=== PATIENT | female | born 1940 | race Caucasian/White ===

== ENCOUNTER 2017-12-16 16:37 | Inpatient (IN) ==
[2017-12-16 17:47] LABS: Hematocrit 42.6 VOL% (35.7-47.0); Hemoglobin 14.5 GM/DL (12.0-16.0); Lymphocytes # 1.1 10*3/uL (1.4-4.0); Lymphocytes % 66.7 % (21.3-54.2); Mean Corpuscular Hemoglobin 30 PG (27-34); Mean Corpuscular Volume 88.6 FL (87-102); Mean Platelet Volume 11.6 FL (9.6-12.0); Monocytes # 0.2 10*3/uL (0.11-0.8); Monocytes % 11.5 % (1.7-12.7); Neutrophils # 0.4 10*3/uL (1.4-7.4); Neutrophils % 21.8 % (38.7-73.9); Red Blood Count 4.81 MC/CUMM (3.8-5.5); Red Cell Distribution Width 13.2 % (9.3-17.3); White Blood Count 1.7 T/CUMM (4-12)
[2017-12-16 17:49] LABS: Platelet Count 75 T/CUMM (130-400)
[2017-12-16 17:57] LABS: PT Patient Result 10.1 SECS
[2017-12-16 18:00] LABS: Albumin 3.6 G/DL (3.4-5.0); Bilirubin,Total 0.4 MG/DL (0.2-1.0); Calcium 8.2 MG/DL (8.5-10.1); Osmolality,Calculated 272.1 MOS/KG (273-304); Potassium 3.5 MMOL/L (3.5-5.1); Troponin I Only 0.178 NG/ML (0.00-0.045)
[2017-12-16 19:02] LABS: Anisocytosis Slight; Atypical Lymphocytes Few; Band Neutrophils 2 % (0-10); Eosinophils 1 % (0-10); Lymphocytes 65 % (20-55); Metamyelocytes 1 %; Microcytosis Slight; Platelet Estimate Decreased; Segmented Neutrophils 22 % (50-85)
[2017-12-16 19:03] LABS: Total Cells Counted 100
[2017-12-16] MEDS ORDERED: SODIUM CHLORIDE 0.9% 1,000 ML IV ONE (19:49)
[2017-12-16 20:06] LABS: Fibrinogen Quant Value 268 MG% (200-400); PT Patient Result 10.2 SECS; Partial Thromboplastin Time 33.4 SECS (0-40)
[2017-12-16] MEDS ORDERED: ACETAMINOPHEN 325 MG TABLET PO PRN (21:56)
[2017-12-16] MEDS ORDERED: ONDANSETRON 4 MG/2 ML VIAL IV PRN (21:56)
[2017-12-16] MEDS: OSELTAMIVIR 75 MG CAPSULE PO SCH (22:42)
[2017-12-16] MEDS: SODIUM CHLORIDE 0.9% 1,000 ML IV SCH (22:43)
[2017-12-16] MEDS: ALBUTEROL 0.63 MG/3 ML NEB RESP TX SCH (23:56)
[2017-12-17 00:08] LABS: Thyroid Stimulating Hormone 2.94 uIU/ml (0.358-3.74)
[2017-12-17 00:12] LABS: Troponin I Only 0.213 NG/ML (0.00-0.045)
[2017-12-17 03:06] LABS: Basophils % 0.5 % (0.0-0.8); Hematocrit 38.5 VOL% (35.7-47.0); Lymphocytes # 1.3 10*3/uL (1.4-4.0); Lymphocytes % 63.6 % (21.3-54.2); Mean Corpuscular HGB Conc 33.8 GM/DL (32-36); Mean Corpuscular Hemoglobin 30 PG (27-34); Mean Corpuscular Volume 87.7 FL (87-102); Mean Platelet Volume 11.4 FL (9.6-12.0); Monocytes # 0.2 10*3/uL (0.11-0.8); Monocytes % 7.7 % (1.7-12.7); Neutrophils # 0.6 10*3/uL (1.4-7.4); Neutrophils % 28.2 % (38.7-73.9); Red Blood Count 4.39 MC/CUMM (3.8-5.5); Red Cell Distribution Width 13.4 % (9.3-17.3); White Blood Count 2.1 T/CUMM (4-12)
[2017-12-17 03:14] LABS: Platelet Count 62 T/CUMM (130-400)
[2017-12-17 04:04] LABS: Band Neutrophils 6 % (0-10); Lymphocytes 62 % (20-55); Metamyelocytes 4 %; Segmented Neutrophils 20 % (50-85)
[2017-12-17 04:05] LABS: Calcium 7.3 MG/DL (8.5-10.1); Osmolality,Calculated 283.8 MOS/KG (273-304); Potassium 3.6 MMOL/L (3.5-5.1)
[2017-12-17 04:06] LABS: Ovalocytes 1+; Platelet Estimate Decreased
[2017-12-17 04:07] LABS: Atypical Lymphocytes Few; Total Cells Counted 100
[2017-12-17] MEDS: LEVOTHYROXINE 50 MCG TABLET PO SCH (06:33)
[2017-12-17] MEDS: SODIUM CHLORIDE 0.9% 1,000 ML IV SCH ×2 (06:45→20:58)
[2017-12-17] MEDS: ALBUTEROL 0.63 MG/3 ML NEB RESP TX SCH ×3 (07:01→23:30)
[2017-12-17] MEDS ORDERED: MAGNESIUM SULF RIDER 2 GM in PREMIX 1 EACH IV ONE (08:45)
[2017-12-17] MEDS: OSELTAMIVIR 75 MG CAPSULE PO SCH ×2 (09:53→20:46)
[2017-12-17] MEDS: OLOPATADINE 0.1% OPH SOLN 5 ML BOTTLE BOTH EYES SCH (10:30)
[2017-12-17] MEDS: guaiFENesin 200 MG/10 ML UDCUP PO PRN ×2 (10:31→22:31)
[2017-12-17] MEDS: traMADol 50 MG TABLET PO PRN (10:31)
[2017-12-17] MEDS ORDERED: GLUCAGON 1 MG VIAL IM PRN (13:09)
[2017-12-17] MEDS ORDERED: DEXTROSE 50% 25 GM/50 ML VIAL IV PRN (13:09)
[2017-12-17] MEDS: INSULIN LISPRO 100 UNIT/ML SUBCUT SCH ×2 (17:42→21:05)
[2017-12-18] MEDS: ZALEPLON 5 MG CAPSULE PO PRN ×2 (00:35→20:23)
[2017-12-18] MEDS: SODIUM CHLORIDE 0.9% 1,000 ML IV SCH (04:15)
[2017-12-18] MEDS: LEVOTHYROXINE 50 MCG TABLET PO SCH (05:49)
[2017-12-18 05:59] LABS: Hematocrit 34.3 VOL% (35.7-47.0); Hemoglobin 11.7 GM/DL (12.0-16.0); Immature Granulocytes % 0.5 %; Immature Granulocytes Absolute 0.01 #; Lymphocytes # 1.3 10*3/uL (1.4-4.0); Lymphocytes % 66.7 % (21.3-54.2); Mean Corpuscular HGB Conc 34.1 GM/DL (32-36); Mean Corpuscular Hemoglobin 30 PG (27-34); Mean Corpuscular Volume 87.1 FL (87-102); Mean Platelet Volume 12.2 FL (9.6-12.0); Monocytes # 0.2 10*3/uL (0.11-0.8); Monocytes % 9.2 % (1.7-12.7); Neutrophils # 0.5 10*3/uL (1.4-7.4); Neutrophils % 23.6 % (38.7-73.9); Platelet Count 49 T/CUMM (130-400); Red Blood Count 3.94 MC/CUMM (3.8-5.5); Red Cell Distribution Width 13.6 % (9.3-17.3)
[2017-12-18 06:17] LABS: Calcium 7.5 MG/DL (8.5-10.1); Osmolality,Calculated 280.1 MOS/KG (273-304); Potassium 3.3 MMOL/L (3.5-5.1)
[2017-12-18 06:22] LABS: Risk Ratio 1.81; VLDL CHOLESTEROL 19.8 MG/DL
[2017-12-18 06:38] LABS: Band Neutrophils 1 % (0-10); Eosinophils 1 % (0-10); Giant Platelets Few; Hypochromasia 1+; Lymphocytes 67 % (20-55); Microcytosis Slight; Ovalocytes Slight; Platelet Estimate Decreased; Segmented Neutrophils 25 % (50-85); Total Cells Counted 100
[2017-12-18 06:39] LABS: Atypical Lymphocytes Few
[2017-12-18] MEDS: ALBUTEROL 0.63 MG/3 ML NEB RESP TX SCH ×2 (07:31→14:40)
[2017-12-18] MEDS: INSULIN LISPRO 100 UNIT/ML SUBCUT SCH ×4 (09:16→20:22)
[2017-12-18] MEDS: OSELTAMIVIR 75 MG CAPSULE PO SCH ×2 (09:17→20:23)
[2017-12-18] MEDS: OLOPATADINE 0.1% OPH SOLN 5 ML BOTTLE BOTH EYES SCH (09:18)
[2017-12-18] MEDS ORDERED: FUROSEMIDE 20 MG/2 ML VIAL IV ONE (10:29)
[2017-12-18] MEDS ORDERED: PIPERACILLIN/TAZOBACTAM 3,375 MG in SODIUM CHLORIDE 0.9% 100 ML IV SCH (10:30)
[2017-12-18] MEDS ORDERED: MAGNESIUM SULF RIDER 2 GM in PREMIX 1 EACH IV PRN (10:33)
[2017-12-18] MEDS ORDERED: MAGNESIUM SULF RIDER 4 GM in PREMIX 1 EACH IV PRN (10:33)
[2017-12-18] MEDS: cefTRIAXone 1,000 MG in SYRINGE 1 EACH IV SCH (11:21)
[2017-12-18] MEDS: LEVOFLOXACIN INJ 750 MG in PREMIX 1 EACH IV SCH (11:24)
[2017-12-18] MEDS: guaiFENesin 200 MG/10 ML UDCUP PO PRN (12:01)
[2017-12-18] MEDS ORDERED: POTASSIUM CHLORIDE 20 MEQ TABLET PO ONE (13:23)
[2017-12-18] MEDS: methylPREDNISolone SOD SUC 40 MG/1 ML VIAL IV SCH (13:51)
[2017-12-18] MEDS ORDERED: FUROSEMIDE 20 MG/2 ML VIAL IV SCH (16:00)
[2017-12-19] MEDS: traMADol 50 MG TABLET PO PRN ×2 (00:36→10:49)
[2017-12-19] MEDS: ALBUTEROL 0.63 MG/3 ML NEB RESP TX SCH ×3 (00:38→19:41)
[2017-12-19] MEDS: methylPREDNISolone SOD SUC 40 MG/1 ML VIAL IV SCH (01:28)
[2017-12-19 05:53] LABS: Hematocrit 38.9 VOL% (35.7-47.0); Hemoglobin 13.6 GM/DL (12.0-16.0); Lymphocytes # 0.9 10*3/uL (1.4-4.0); Lymphocytes % 46.5 % (21.3-54.2); Mean Corpuscular Hemoglobin 30 PG (27-34); Mean Corpuscular Volume 85.3 FL (87-102); Mean Platelet Volume 11.7 FL (9.6-12.0); Monocytes # 0.1 10*3/uL (0.11-0.8); Neutrophils % 49.5 % (38.7-73.9); Platelet Count 57 T/CUMM (130-400); Red Blood Count 4.56 MC/CUMM (3.8-5.5); Red Cell Distribution Width 13.4 % (9.3-17.3)
[2017-12-19] MEDS: LEVOTHYROXINE 50 MCG TABLET PO SCH (05:59)
[2017-12-19 06:26] LABS: Calcium 8.4 MG/DL (8.5-10.1); Osmolality,Calculated 283.1 MOS/KG (273-304); Potassium 4.2 MMOL/L (3.5-5.1)
[2017-12-19 06:27] LABS: Calcium 8.5 MG/DL (8.5-10.1); Osmolality,Calculated 283.1 MOS/KG (273-304); Potassium 4.2 MMOL/L (3.5-5.1)
[2017-12-19 06:34] LABS: Band Neutrophils 1 % (0-10); Lymphocytes 45 % (20-55); Segmented Neutrophils 49 % (50-85); Total Cells Counted 100
[2017-12-19 06:43] LABS: Hypochromasia 1+; Microcytosis 1+; Platelet Estimate Decreased
[2017-12-19] MEDS: OSELTAMIVIR 75 MG CAPSULE PO SCH ×2 (08:43→20:24)
[2017-12-19] MEDS: INSULIN LISPRO 100 UNIT/ML SUBCUT SCH ×4 (08:43→20:08)
[2017-12-19] MEDS: OLOPATADINE 0.1% OPH SOLN 5 ML BOTTLE BOTH EYES SCH (08:44)
[2017-12-19] MEDS: cefTRIAXone 1,000 MG in SYRINGE 1 EACH IV SCH (10:22)
[2017-12-19] MEDS: LEVOFLOXACIN INJ 750 MG in PREMIX 1 EACH IV SCH (10:22)
[2017-12-19] MEDS: amLODIPine 5 MG TABLET PO SCH (11:22)
[2017-12-20] MEDS: LEVOTHYROXINE 50 MCG TABLET PO SCH (05:54)
[2017-12-20] MEDS: ALBUTEROL 0.63 MG/3 ML NEB RESP TX SCH (07:26)
[2017-12-20] MEDS: INSULIN LISPRO 100 UNIT/ML SUBCUT SCH ×2 (07:53→13:36)
[2017-12-20 08:18] VITALS: BP 138/63
[2017-12-20] MEDS ORDERED: predniSONE 20 MG TABLET PO SCH (09:00)
[2017-12-20] MEDS: OSELTAMIVIR 75 MG CAPSULE PO SCH (09:09)
[2017-12-20] MEDS: amLODIPine 5 MG TABLET PO SCH (09:09)
[2017-12-20] MEDS: OLOPATADINE 0.1% OPH SOLN 5 ML BOTTLE BOTH EYES SCH (09:11)
[2017-12-20] MEDS: LEVOFLOXACIN INJ 750 MG in PREMIX 1 EACH IV SCH (09:32)
[2017-12-20] MEDS: cefTRIAXone 1,000 MG in SYRINGE 1 EACH IV SCH (09:33)
== END 2017-12-20 13:24 | disposition home or self-care (01) | DRG 153 ==
LOC: N.ED 16:37 → N.EDINP 19:40 → N.TELES 20:49
PROVIDERS: ADMIT Internal Medicine; ATTEND Internal Medicine